=== PATIENT | female | born 1955 | race Caucasian/White ===

== ENCOUNTER 2023-03-05 10:47 | Outpatient (OUT) | payer MEDICARE, SELFPAY ==
--- NOTE | 2023-03-05 10:57 | MM_ITS ---
Patient: JORGE STILES Exam Date: 03/05/2023 : 1955 Gender:F Ordering : DR LIMA BAUTISTA Admission #: [id number] Family : DR MCCLELLAND BrannonJadon CHARLESERICA Order #: [id number] CLICK HERE TO VIEW EXAM RADIOLOGY REPORT PROCEDURE: MM TOMOSYNTHESIS SCREENING BI COMPARISON: MG MAMM SCREEN 3D JACKIE CAD, 03/02/2022. MG MAMM SCREEN 3D JACKIE CAD, 03/01/2021. MG MAMM SCREEN JACKIE W CAD, 02/24/2020. MG MAMM JACKIE DIAG W CAD DIG, 01/02/2013. INDICATIONS: Screening Calculator Name NCI Breast Cancer Risk Assessment Tool 5 Year Breast Cancer Risk n/a% Lifetime Breast Cancer Risk n/a% Personal Breast Cancer Yes, Left breast infiltrating ductal cancer 2009 Personal Ovarian Cancer No Treatments Lumpectomy, Radiation, Tamoxifen. Family Cancers Aunt-paternal with breast cancer at age 70; Brother with brain cancer at age 45; Aunt-paternal with breast cancer at age 85. LOCATION: [facility] BREAST COMPOSITION: Heterogeneously dense,which may obscure small masses. FINDINGS: DIAGNOSTIC CATEGORY 2--BENIGN FINDING: RIGHT BREAST: No significant suspicious finding. No significant change has occurred. LEFT BREAST: No significant suspicious finding. Stable postsurgical scarring within the upper inner quadrant. No significant change has occurred. RECOMMENDATIONS: ROUTINE MAMMOGRAM AND CLINICAL EVALUATION IN 12 MONTHS. PLEASE NOTE: A NORMAL MAMMOGRAM DOES NOT EXCLUDE THE POSSIBILITY OF BREAST CANCER. A CLINICALLY SUSPICIOUS PALPABLE LUMP SHOULD BE BIOPSIED. Dictated by: Juan Brandon M.D. on 03/06/2023 at 09:59 Approved by: Juan Brandon M.D. on 03/06/2023 at 10:05
== END 2023-03-05 10:48 | disposition home or self-care (01) ==
LOC: MAMMO 10:48
PROVIDERS: PCP Family Medicine; Visit Provider Nurse Practitioner Family
DX: Z12.31 Encounter for screening mammogram for malignant neoplasm of breast (principal); Z85.3 Personal history of malignant neoplasm of breast; Z98.890 Other specified postprocedural states; Z80.3 Family history of malignant neoplasm of breast
CPT/HCPCS: 77063; 77067

== ENCOUNTER 2024-03-06 10:48 | Outpatient (OUT) | payer MEDICARE, SELFPAY ==
--- NOTE | 2024-03-06 10:52 | MM_ITS ---
Patient Name: JORGE STILES MR#: [id number] : 1955 Exam Date: 03/06/2024 Ordering Doctor: DR ANA LUISA ORTIZ RADIOLOGY REPORT PROCEDURE: MM TOMOSYNTHESIS SCREENING BI COMPARISON: MG MAMM SCREEN 3D JACKIE CAD, 03/02/2022. MM TOMOSYNTHESIS SCREENING BI, 03/05/2023. INDICATIONS: Screening Calculator Name NCI Breast Cancer Risk Assessment Tool 5 Year Breast Cancer Risk n/a% Lifetime Breast Cancer Risk n/a% Personal Breast Cancer Yes, Left breast infiltrating ductal cancer 2009 Personal Ovarian Cancer No Treatments Lumpectomy, Radiation, Tamoxifen. Family Cancers Aunt-paternal with breast cancer at age 70; Brother with brain cancer at age 45; Aunt-paternal with breast cancer at age 85. LOCATION: [facility] BREAST COMPOSITION: The breasts are heterogeneously dense, which may obscure small masses. FINDINGS: DIAGNOSTIC CATEGORY 2--BENIGN FINDING. NO CHANGE FROM COMPARISON. Scattered benign-appearing calcifications are present. Scattered benign-appearing lymph nodes are present. RIGHT BREAST: No significant suspicious finding. LEFT BREAST: Asymmetrically small, stable. Area of architectural distortion with coarse calcifications deep to linear markers lower inner quadrant. Surgical clips in the axillary tail. RECOMMENDATIONS: ROUTINE MAMMOGRAM AND CLINICAL EVALUATION IN 12 MONTHS. PLEASE NOTE: A NORMAL MAMMOGRAM DOES NOT EXCLUDE THE POSSIBILITY OF BREAST CANCER. A CLINICALLY SUSPICIOUS PALPABLE LUMP SHOULD BE BIOPSIED. Dictated by: Henrique Sanchez MD on 03/06/2024 at 13:19 Approved by: Henrique Sanchez MD on 03/06/2024 at 13:36
== END 2024-03-06 10:49 | disposition home or self-care (01) ==
LOC: MAMMO 10:48
PROVIDERS: PCP Family Medicine; Visit Provider Internal Medicine
DX: Z12.31 Encounter for screening mammogram for malignant neoplasm of breast (principal); Z80.3 Family history of malignant neoplasm of breast; Z85.841 Personal history of malignant neoplasm of brain
CPT/HCPCS: 77063; 77067